=== PATIENT | male | born 1950 | race Caucasian/White ===

== ENCOUNTER 2016-09-16 07:33 | Inpatient (IN) ==
--- NOTE | 2016-09-16 07:44 | Emergency Department Note ---
Disposition Clinical Impression: Acute appendicitis, Perforated appendix Disposition: Admitted As Inpatient Condition: Good General Adult HPI - General Chief complaint: ED Abdominal Pain Stated complaint: Flank Pain / Swelling Time Seen by Provider: 09/16/16 07:41 Source: patient Limitations: no limitations - History of Present Illness Pain Scale: 6 - Related Data Home Medications Medication Instructions Recorded Confirmed Citalopram Hydrobromide [Celexa] 40 mg PO QAM 09/16/16 09/16/16 Lisinopril/Hydrochlorothiazide 1 tab PO QAM 09/16/16 09/16/16 [Zestoretic 10-12.5 mg Tablet] Meloxicam [Mobic] 15 mg PO QAM 09/16/16 09/16/16 Oxycodone HCl/Acetaminophen 1 tab PO Q6H PRN 09/16/16 09/16/16 [Percocet 5-325 mg Tablet] Tizanidine HCl [Zanaflex] 4 mg PO TID PRN 09/16/16 09/16/16 Allergies Allergy/AdvReac Type Severity Reaction Status Date / Time Amoxicillin Allergy Hives Verified 09/16/16 09:51 ampicillin Allergy Hives Verified 09/16/16 09:51 bupropion [From Wellbutrin] Allergy Hives Verified 09/16/16 09:51 Past Medical History - Past Medical History Medical history: Reports: hypertension Psychiatric history: Reports: anxiety, depression - Social History Smoking Status: Current every day smoker Smokeless Tobacco Status: No Alcohol use: Reports: none Drug use: Reports: none Physical Exam - General Limitations: no limitations General appearance: alert Course Vital Signs Temperature 98 F 09/16/16 07:35 Pulse Rate 88 09/16/16 07:35 Respiratory Rate 18 09/16/16 07:35 Blood Pressure 114/81 09/16/16 07:35 O2 Sat by Pulse Oximetry 98 09/16/16 07:35 Temperature 97.7 F 09/17/16 06:59 Pulse Rate 62 09/17/16 06:59 Respiratory Rate 17 09/17/16 06:59 Blood Pressure 132/79 09/17/16 06:59 O2 Sat by Pulse Oximetry 95 09/17/16 06:59 Oxygen Delivery Oxygen Delivery Room Air Medical Decision Making - Lab Data Result diagrams: 09/17/16 05:35 09/17/16 05:35 Lab Results 09/16/16 09/16/16 09/16/16 Range/Units 08:07 08:11 08:11 WBC 13.4 H (4.3-11.1) K/mcL RBC 5.20 (4.19-5.50) M/mcL Hgb 15.3 (12.9-16.9) g/dL Hct 45.3 (37.5-50.1) % MCV 87.1 (83.0-100.0) fL MCH 29.4 (28.0-33.3) pg MCHC 33.8 (31.6-35.5) g/dL RDW 14.0 (11.5-14.5) % Plt Count 252 (140-400) K/mcL MPV 10.0 (9.4-12.4) fL Immature Gran % 0.8 (0-4) % Seg Neutrophils % 87.1 % Lymphocytes % 3.5 % Monocytes % 7.1 % Eosinophils % 1.3 % Basophils % 0.2 % Neutrophils # 11.6 H (1.6-8.9) K/mcL Lymphocytes # 0.5 L (0.6-4.6) K/mcL Monocytes # 1.0 (0.0-1.3) K/mcL Eosinophils # 0.2 (0.0-0.6) K/mcL Basophils # 0.0 (0.0-0.2) K/mcL Sodium 135 L (136-145) mEq/L Potassium 3.5 (3.5-4.5) mEq/L Chloride 99 (98-109) mEq/L Carbon Dioxide 27 (19-29) mEq/L BUN 17 (8-26) mg/dL Creatinine 1.19 (0.72-1.25) mg/dL Est GFR ( Amer) > 60 (> 60) Est GFR (Non-Af Amer) > 60 (> 60) BUN/Creatinine Ratio 14 (6-26) Glucose 108 H (70-99) mg/dL Calculated Osmolality 282 (280-300) Calcium 9.4 (8.6-10.8) mg/dL Total Bilirubin 1.2 (0.2-1.2) mg/dL AST 27 (5-34) Units/L ALT 29 (0-55) Units/L Alkaline Phosphatase 114 (38-126) Units/L Serum Total Protein 8.0 (6.0-8.3) g/dL Albumin 3.3 L (3.5-5.0) g/dL Globulin 4.7 H (2.4-3.5) g/dL Albumin/Globulin Ratio 0.7 L (1.1-2.2) Urine Color Dark Yellow (Yellow) Urine Clarity Clear (Clear) Urine pH 6.0 (5.0-8.0) pH Units Ur Specific [place] 1.029 H (1.010-1.025) Urine Protein 100 H (Neg-Trace) mg/dL Urine Glucose (UA) Normal (Normal) mg/dL Urine Ketones Trace H (Negative) mg/dL Urine Blood Negative (Negative) Urine Nitrite Negative (Negative) Urine Bilirubin Small H (Negative) Urine Urobilinogen Normal (Normal) mg/dL Ur Leukocyte Esterase Negative (Negative) Urine Microscopic RBC 0-3 (0-3) per hpf Urine Microscopic WBC 0-3 (0-3) per hpf Ur Squamous Epith Cells Many H (None-Few) per lpf Urine Bacteria None Seen (None-Few) per hpf Hyaline Casts None Seen (None-Few) per lpf Ur Culture Indicated? NO (NO) Attestation Statement - Attestation Attestation: I examined this patient and my medical decision-making was reviewed with the Resident Physician. I agree with the documented findings, disposition and treatment plan as described except to the extent set forth below. [id number] time provided Patient complains of right flank pain. When asked to localize his pain he actually points to his right lateral abdomen. I cannot reproduce a Khoury sign. He appears uncomfortable on exam. He does have a small well- circumscribed erythematous rash to his anterior abdominal wall but states this has been present for 2 weeks and he was told by his primary care provider that this is a reaction to a prescribed medication. I evaluated this patient in conjunction with the resident physician Dr. Boston.
--- NOTE | 2016-09-16 07:50 | Emergency Department Note ---
Disposition Clinical Impression: Perforated appendix Acute appendicitis Qualifiers: Acute appendicitis type: with generalized peritonitis Qualified Code(s): K35.2 - Acute appendicitis with generalized peritonitis Disposition: Admitted As Inpatient Condition: Good Referrals: NONE,PCP [Non-Partnered Physician] - Forms: ED Satisfaction Letter, Work/School Release Time of Disposition: 09:00 General Adult HPI - General Chief complaint: ED Abdominal Pain Stated complaint: Flank Pain / Swelling Time Seen by Provider: 09/16/16 07:41 Source: patient Limitations: no limitations Nursing Notes Reviewed: Yes Vital Signs Reviewed: Yes - History of Present Illness HPI Narrative: 1 week history of mass on right abdominal wall. States that he was picking up heavy material and felt a pull in his side. Has been seen by his primary care physician diagnosed with the abdominal wall strain however the pain is not getting better. He reports subjective chills and a high temp of 99 at home. He states if he lays still it is not very ambulatory the pain eases. The quality as an ache. There is no radiation. Pain Scale: 6 - Related Data Allergies Allergy/AdvReac Type Severity Reaction Status Date / Time ampicillin AdvReac Hives Verified 09/16/16 07:40 clonazepam AdvReac Confusion Verified 09/16/16 07:40 All systems ED: reviewed and negative except as stated. Constitutional: Reports: chills. Denies: fever, weakness Cardiovascular: Reports: dyspnea on exertion (After walking long distances.). Denies: chest pain, syncope Respiratory: Denies: cough, dyspnea Gastrointestinal: Reports: abdominal pain (2 right upper quadrant). Denies: nausea, vomiting, diarrhea Genitourinary: Denies: urgency, dysuria, frequency, hematuria, testicular mass Musculoskeletal: Denies: back pain, neck pain Integumentary: Reports: rash (2 abdominal wall present for over 2 weeks. Healing appropriately). Denies: abrasion Neurological: Denies: headache, weakness Psychiatric: Reports: anxiety Past Medical History - Past Medical History Attestation: Yes The following information was validated with the patient. Source: patient Medical history: Reports: hypertension Psychiatric history: Reports: anxiety, depression - Social History Smoking Status: Current every day smoker Smokeless Tobacco Status: No Alcohol use: Reports: none Drug use: Reports: none Physical Exam - General Limitations: no limitations General appearance: alert, in no apparent distress - Head Head exam: atraumatic, normocephalic, normal inspection - Eye Eye exam: Present: normal appearance, PERRL, EOMI, scleral icterus - ENT ENT exam: normal exam, normal oropharynx, mucous membranes moist - Neck Neck exam: Present: normal inspection, full ROM - Chest Chest inspection: Present: normal inspection, symmetric chest wall rise. Absent : tenderness - Respiratory Respiratory exam: Present: normal lung sounds bilaterally. Absent: respiratory distress - Cardiovascular Cardiovascular exam: Present: regular rate, normal rhythm, normal heart sounds - Abdominal Exam Abdominal exam: Present: soft, tenderness (Mild tenderness over right lateral abdominal wall.), normal bowel sounds, organomegaly. Absent: distention, guarding, rebound, rigidity, diminished bowel sounds, Khoury's sign, Rovsing's sign, tenderness at McBurney's Point, ascites - Extremities Exam Extremities exam: Present: normal inspection, full ROM, normal capillary refill. Absent: tenderness, pedal edema - Back Exam Back exam: Present: normal inspection, full ROM. Absent: tenderness, CVA tenderness (R), CVA tenderness (L) - Neurological Exam Neurological exam: Present: alert, oriented X3 - Psychiatric Psychiatric exam: Present: normal affect, normal mood - Skin Skin exam: Present: warm, dry, intact, rash (Small to anterior abdominal wall healing appropriately.) Course Course Narrative: Well-appearing male patient presenting to the emergency department. He is complaining of a five-day history of pain to his right side. He states he was lifting some heavy metal and felt a pull in his side. He then noticed he has a mass that he can palpate in his abdomen. This is to the right upper quadrant. He states that he was seen by his primary care physician for this this week and diagnosed with a muscle strain. However the pain is not relieved. He does report subjective fevers at home however when he measured at the greatest he got was 99 degrees Fahrenheit. He denies any nausea vomiting or diarrhea. He denies any hematochezia or melena. He denies any trouble urinating. He denies any history of kidney stones or liver disease. He states he is not a drinker. Does report smoking a half a pack of cigarettes a day. He reports feeling a mass on the right side of his abdomen. He also reports having an allergic reaction to Klonopin approximately 3 weeks ago that resulted in a small rash to his abdominal wall. This appears to be healing appropriately. The rash is bilateral on his anterior abdomen. Patient is resting comfortably in bed at this time. On exam his lung sounds are clear heart tones are normal his abdomen is soft and nontender. The area that he points to and states there is a mass on palpation feels like a muscle. It is to his right upper and lateral quadrant. He has no tenderness in his right lower quadrant. There is no McBurney's point tenderness or Khoury sign. Patient is refusing pain medication at this time. He describes the pain as an ache but states that it is minimal to gone at this time. We will get a basic lab workup palpation and scan patient's abdomen. We will also get a UA. - Reevaluation(s) Reevaluation #1: Patient has a perforated appendix. We will contact Dr. combs who is on for surgery today. We will also begin patient on antibiotics. We will start patient on Zosyn. He states that he does have an ampicillin allergy however this is a rash after he has taken the medication for over 9 days. We will watch patient while he is here. We will admit to the hospital. Time: 08:59 - Consultations Consultation #1: I spoke with Dr. Combs. He is requesting we placed the patient on double antibiotic coverage. He is suggesting Zosyn and Flagyl. He is requesting we admit the patient to the hospitalist as the abdomen needs to call off after the perforation. We will contact the hospitalist. I have placed a consult for Dr. combs. Time: 09:16 Consultation #2: Dr Cohen accepted Pt in stable condition. Time: 09:26 Vital Signs Temperature 98 F 09/16/16 07:35 Pulse Rate 88 09/16/16 07:35 Respiratory Rate 18 09/16/16 07:35 Blood Pressure 114/81 09/16/16 07:35 O2 Sat by Pulse Oximetry 98 09/16/16 07:35 Temperature 98 F 09/16/16 07:35 Pulse Rate 86 09/16/16 09:02 Respiratory Rate 16 09/16/16 09:02 Blood Pressure 110/81 09/16/16 09:02 O2 Sat by Pulse Oximetry 96 09/16/16 09:02 Oxygen Delivery Oxygen Delivery Room Air Medical Decision Making - Medical Records Medical records reviewed: Yes I reviewed the patient's medical records. - Lab Data Lab results reviewed: Yes I reviewed the patient's lab results. Result diagrams: 09/16/16 08:11 09/16/16 08:11 Lab Results 09/16/16 09/16/16 09/16/16 Range/Units 08:07 08:11 08:11 WBC 13.4 H (4.3-11.1) K/mcL RBC 5.20 (4.19-5.50) M/mcL Hgb 15.3 (12.9-16.9) g/dL Hct 45.3 (37.5-50.1) % MCV 87.1 (83.0-100.0) fL MCH 29.4 (28.0-33.3) pg MCHC 33.8 (31.6-35.5) g/dL RDW 14.0 (11.5-14.5) % Plt Count 252 (140-400) K/mcL MPV 10.0 (9.4-12.4) fL Immature Gran % 0.8 (0-4) % Seg Neutrophils % 87.1 % Lymphocytes % 3.5 % Monocytes % 7.1 % Eosinophils % 1.3 % Basophils % 0.2 % Neutrophils # 11.6 H (1.6-8.9) K/mcL Lymphocytes # 0.5 L (0.6-4.6) K/mcL Monocytes # 1.0 (0.0-1.3) K/mcL Eosinophils # 0.2 (0.0-0.6) K/mcL Basophils # 0.0 (0.0-0.2) K/mcL Sodium 135 L (136-145) mEq/L Potassium 3.5 (3.5-4.5) mEq/L Chloride 99 (98-109) mEq/L Carbon Dioxide 27 (19-29) mEq/L BUN 17 (8-26) mg/dL Creatinine 1.19 (0.72-1.25) mg/dL Est GFR ( Amer) > 60 (> 60) Est GFR (Non-Af Amer) > 60 (> 60) BUN/Creatinine Ratio 14 (6-26) Glucose 108 H (70-99) mg/dL Calculated Osmolality 282 (280-300) Calcium 9.4 (8.6-10.8) mg/dL Total Bilirubin 1.2 (0.2-1.2) mg/dL AST 27 (5-34) Units/L ALT 29 (0-55) Units/L Alkaline Phosphatase 114 (38-126) Units/L Serum Total Protein 8.0 (6.0-8.3) g/dL Albumin 3.3 L (3.5-5.0) g/dL Globulin 4.7 H (2.4-3.5) g/dL Albumin/Globulin Ratio 0.7 L (1.1-2.2) Urine Color Dark Yellow (Yellow) Urine Clarity Clear (Clear) Urine pH 6.0 (5.0-8.0) pH Units Ur Specific [place] 1.029 H (1.010-1.025) Urine Protein 100 H (Neg-Trace) mg/dL Urine Glucose (UA) Normal (Normal) mg/dL Urine Ketones Trace H (Negative) mg/dL Urine Blood Negative (Negative) Urine Nitrite Negative (Negative) Urine Bilirubin Small H (Negative) Urine Urobilinogen Normal (Normal) mg/dL Ur Leukocyte Esterase Negative (Negative) Urine Microscopic RBC 0-3 (0-3) per hpf Urine Microscopic WBC 0-3 (0-3) per hpf Ur Squamous Epith Cells Many H (None-Few) per lpf Urine Bacteria None Seen (None-Few) per hpf Hyaline Casts None Seen (None-Few) per lpf Ur Culture Indicated? NO (NO) - Radiology Data Radiology results reviewed: Yes I reviewed the patient's radiology results. Abdomen/Pelvis CT 09/16/16 07:57 IMPRESSION: 1. Acute appendicitis with a contained perforation. An air in fluid collection is seen at the tip of the appendix measuring up to 3.8 cm. Moderate amount of stranding is seen along the right pericolic gutter. 2. Thickening of the urinary bladder wall, which may be related to underdistention versus cystitis. Suggest correlation with urinalysis. 3. Otherwise, no acute abnormality identified within the unenhanced abdomen or pelvis. 4. Diverticulosis of the colon without diverticulitis. 5. A punctate nonobstructing stone is seen at the inferior pole the left kidney. Findings were discussed with Dr. Boston on 09/16/2016 at 8:49 am. D/ / Buzz Sanabria MD / Buzz Sanabria MD Interpreting Provider: Buzz Sanabria MD
[2016-09-16 08:19] LABS: Basophils % 0.2 %; Eosinophils # 0.2 K/mcL (0.0-0.6); Eosinophils % 1.3 %; Hematocrit 45.3 % (37.5-50.1); Hemoglobin 15.3 g/dL (12.9-16.9); Immature Granulocytes % 0.8 % (0-4); Lymphocytes # 0.5 K/mcL (0.6-4.6); Lymphocytes % 3.5 %; Mean Corpuscular HGB Conc 33.8 g/dL (31.6-35.5); Mean Corpuscular Hemoglobin 29.4 pg (28.0-33.3); Mean Corpuscular Volume 87.1 fL (83.0-100.0); Monocytes % 7.1 %; Neutrophils # 11.6 K/mcL (1.6-8.9); Platelet Count 252 K/mcL (140-400); Segmented Neutrophils % 87.1 %
[2016-09-16 08:21] LABS: Bilirubin,Urine Small (Negative); Blood,Urine Negative (Negative); Clarity,Urine Clear (Clear); Color,Urine Dark Yellow (Yellow); Glucose,Urine (UA) Normal (Normal); Ketones,Urine Trace mg/dL (Negative); Leukocyte Esterase,Urine Negative (Negative); Nitrite,Urine Negative (Negative); Protein,Urine 100 mg/dL (Neg-Trace); Specific Gravity,Urine 1.029 (1.010-1.025); Urobilinogen,Urine Normal (Normal)
[2016-09-16 08:24] LABS: Bacteria,Urine None Seen per hpf (None-Few); Hyaline Casts,Urine None Seen per lpf (None-Few); RBC,Urine 0-3 per hpf (0-3); Squamous Epithelial Cell,Urine Many per lpf (None-Few); WBC,Urine 0-3 per hpf (0-3)
[2016-09-16 08:33] LABS: Alanine Aminotransferase 29 Units/L (0-55); Albumin 3.3 g/dL (3.5-5.0); Albumin/Globulin Ratio 0.7 (1.1-2.2); Alkaline Phosphatase 114 Units/L (38-126); Aspartate Amino Transferase 27 Units/L (5-34); BUN/Creatinine Ratio 14 (6-26); Bilirubin,Total 1.2 mg/dL (0.2-1.2); Blood Urea Nitrogen 17 mg/dL (8-26); Calcium 9.4 mg/dL (8.6-10.8); Carbon Dioxide 27 mEq/L (19-29); Chloride 99 mEq/L (98-109); Globulin 4.7 g/dL (2.4-3.5); Glucose 108 mg/dL (70-99); Osmolality,Calculated 282 (280-300); Potassium 3.5 mEq/L (3.5-4.5); Sodium 135 mEq/L (136-145); eGFR For African Americans > 60 (> 60); eGFR For Non-African Americans > 60 (> 60)
[2016-09-16] MEDS ORDERED: *HR* Morphine 2 MG/ML SYRINGE IVP ONE (08:46)
[2016-09-16] MEDS ORDERED: Piperacillin/Tazobactam 3.375 GM in D5% in Water (Mini-Bag+) 100 ML IVPB ONE (08:52)
[2016-09-16] MEDS ORDERED: MetroNIDAZOLE 500 MG/100 ML 500 MG/100 ML BAG IVPB ONE (09:15)
[2016-09-16] MEDS ORDERED: *HR* Morphine 2 MG/ML SYRINGE IVP PRN (09:46)
[2016-09-16] MEDS ORDERED: Naloxone 0.4 MG/ML INJ IVP PRN (09:46)
[2016-09-16] MEDS ORDERED: Ondansetron 4 MG/2 ML VIAL IVP PRN (09:46)
[2016-09-16] MEDS ORDERED: Ipratropium/Albuterol Neb 3 ML IH PRN (09:49)
--- NOTE | 2016-09-16 09:52 | Internal Med History&Physical ---
Date of Encounter: 09/16/16 Time of Encounter: 09:50 Assessment and Plan (1) Intra-abdominal abscess Current visit: Yes Status: Acute secondary to perforated appendicitis NPO, IV fluids, morphine as needed, Zofran continue Zosyn and Flagyl IV as requested by Dr Combs Protonix IV for GI prophylaxis and subcutaneous heparin for DVT prophylaxis. The patient will be admitted as inpatient, expected stable intermittent. Full code. Time spent on this admission 40 minutes. High risk due to perforated appendicitis (2) Hypertension Current visit: Yes Status: Acute Can use hydralazine IV as needed Qualifiers: Hypertension type: essential hypertension Qualified Code(s): I10 - Essential (primary) hypertension (3) Tobacco abuse Current visit: Yes Status: Acute Smoking cessation counseling, nicotine patch (4) Perforated appendix Current visit: Yes Status: Acute Internal Medicine - H&P: HPI Chief complaint: Abdominal pain Admitted From: Emergency Dept History of present illness: Mr. Carlos is a 66 year old male with a past medical history of tobacco use, hypertension, anxiety, came to the emergency room complaining of abdominal pain that started a week ago worse on Monday, he went to see his primary care physician when stay in he was diagnosed with a pulled muscle. The pain got worse and is located in the right hemiabdomen. The CT scan of the abdomen and pelvis showed a perforated appendicitis and there is a 3.8 cm fluid collection with air/abscess at the tip of the appendix, also a thickened bladder. Dr. Combs was called by the ER physician and requested the patient to be admitted to the hospitalist service and to continue Zosyn and Flagyl. Patient's white blood cell count is 13.4, his been running fevers of 99 at home. Has been complaining of chills and mild nausea and his pain was rated as 4 out of 10 after receiving morphine. 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 Review of systems: Abdominal pain, no chest pain or short of breath. Other systems out of the 10 reviewed were negative - Constitutional Vitals: Temp Pulse Resp BP Pulse Ox 98 F 78 15 111/77 96 09/16/16 07:35 09/16/16 09:37 09/16/16 09:37 09/16/16 09:37 09/16/16 09:37 General appearance: Present: A&O X 3 - Head Head exam: Present: atraumatic, normocephalic - Eye Eye exam: Present: PERRL, conjuntiva pink, sclera anicteric Pupils: Present: PERRL - Neck Neck exam general surgery: Present: supple, trachea midline. Absent: lymphadenopathy - Respiratory Respiratory exam: Present: CTAB. Absent: accessory muscle use, rales, rhonchi, wheezes - Cardiovascular Cardiovascular exam: Present: RRR, +S1, +S2. Absent: diastolic murmur, gallop, rubs, systolic murmur - GI/Abdominal GI/Abdominal exam: Present: distended, normal bowel sounds, soft, tenderness ( Tenderness in the right lower quadrant, no rebound. Khoury sign is negative), no peritoneal signs - Extremities Exam Extremities exam: Present: warm, radial pulses palpable and symetrical. Absent : calf tenderness, cyanotic, pedal edema - Neurological Exam Neurological exam: Present: CN II-XII intact, oriented X3, no focal deficits. Absent: pronater drift, facial droop, speech deficit - Skin Skin exam: Present: dry, intact Internal Med - H&P Results - Labs CBC & Chem 7: 09/16/16 08:11 09/16/16 08:11
[2016-09-16] MEDS: 0.9 % Sodium Chloride 1,000 ML IVC SCH ×2 (11:28→19:19)
[2016-09-16] MEDS: Pantoprazole 40 MG VIAL IVP SCH (11:28)
[2016-09-16] MEDS: Nicotine 21 MG PATCH.TD24 TD SCH (11:28)
--- NOTE | 2016-09-16 11:55 | General Surgery Consult Note ---
Date of Encounter: 09/16/16 Time of Encounter: 11:15 History of Present Illness Reason for consult: abdominal pain (acute perforated appendicitis) Requesting physician: Doretha Boston History of present illness: 66-year-old male referred to surgical services after presenting to the emergency department with approximately a 4 day history of right lower quadrant/ right flank pain. Patient indicates being seen by his primary provider about 3 days ago, with a diagnosis of a "pulled muscle"related to lifting a heavy object and feeling "something pull". Since that time the patient's symptoms have progressed, there is subjective reporting of chills and a fever of approximately 99 degrees. No rigors, N/V, inconsistent diarrhea with interspersed normal bowel movements. On presentation to the emergency department patient has a white count of 13.[address] abdomen and pelvis (which was personally reviewed with [facility]) showing moderate stranding seen along the right pericolic gutter with thickening of the appendix along with an air-fluid level measuring 3.5 x 3.7 x 3.8 cm. Diverticulosis left side of the abdomen is detected without obvious inflammation. The findings are consistent with an acute perforated appendicitis and sarahy appendiceal abscess formation. 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 Clonazepam and Toradol recently stopped as the patient was complaining of some weakness, dizziness/ vertigo and visual changes. Ampicillin as described to cause a rash, possibly hives Social history: Patient is , was with spell; quit all alcohol approximately 5 years ago (history of alcohol abuse); he continues to smoke, admitting to half a pack a day for approximately 40 years. The patient does not consume any illicit drugs. Family history: Both parents with history of lung cancer On physical examination: Age-appropriate male resting comfortably in his hospital bed. It should be noted that he has recently been medicated with morphine The patient is afebrile, 98.0; heart rate 78, respirations 18, blood pressure 111/77; SPO2 on room air 96-99% The patient is 1.7 cm tall, 86.18 kg; BMI 29.8 Skin is warm, no obvious jaundice Lungs: Clear, no pain on inspiration during my exam however the patient indicates he did have pain on inspiration in the emergency department Cardiac: Regular rate, no appreciable murmurs Abdomen: Soft, nontender, no detected intra abdominal masses, however, there is an approximately 4 cm ovoid area of discoloration which is tender in the right flank area anterior axillary line. This corresponds and is consistent with the CT findings. Bowel sounds hypoactive. Extremities: no obvious clubbing, cyanosis, or edema. Laboratories: White count 13.4, hemoglobin 15.3, hematocrit 45.3. Neutrophils 11.6%; platelet count 252,000 Sodium 135, potassium 3.5, chloride 99, bicarbonate 27, BUN 17, creatinine 1.19. Urinalysis notable for pH 6.0, specific gravity 1.029; protein 100, trace bili; many squamous epith cells CT: As described above Impression: 66-year-old male with acute, perforated, retrocecal appendicitis Recommendations: IV ATB - it is my understanding patient received Zosyn in the ED (with no apparent adverse reaction); I have also requested metronidazole to aggressively treat the perforation and sarahy appendiceal abscess patient may have clear liquids including coffee as well as oral medications that are not available in IV form Interval Appendectomy will be planned if the acute inflammation responds to the IV ATB This was extensively discussed with the patient and his . I will follow along with you. Past Med Surg Social Fam HX - Past Medical History Medical history: hypertension, other Psychiatric history: anxiety, depression - Past Surgical History Surgical History: other - Social History Smoking Status: Current every day smoker Packs per day: Half pack per day Smokeless Tobacco Status: No Alcohol use: none Drug use: none - Family History Mother Living Status: Hx Family Cardiac Disorders: Yes Hx Family Cancer: Yes (lung cancer) Medications and Allergies Citalopram Hydrobromide [Celexa] 40 mg PO QAM 09/16/16 [History] Lisinopril/Hydrochlorothiazide [Zestoretic 10-12.5 mg Tablet] 1 tab PO QAM 09/16 [History] Meloxicam [Mobic] 15 mg PO QAM 09/16/16 [History] Oxycodone HCl/Acetaminophen [Percocet 5-325 mg Tablet] 1 tab PO Q6H PRN [History] Tizanidine HCl [Zanaflex] 4 mg PO TID PRN 09/16/16 [History] Allergies Amoxicillin Allergy (Verified 09/16/16 09:51) Hives ampicillin Allergy (Verified 09/16/16 09:51) Hives bupropion [From Wellbutrin] Allergy (Verified 09/16/16 09:51) Hives Review of Systems All systems PM: A 10-system review of systems was performed and is negative for pertinent findings except as documented above in the HPI. General Surgery Exam Initial Vital Signs Temp Pulse Resp BP Pulse Ox 98 F 88 18 114/81 98 09/16/16 07:35 09/16/16 07:35 09/16/16 07:35 09/16/16 07:35 09/16/16 07:35 Exam Initial Vital Signs Temp Pulse Resp BP Pulse Ox 98 F 88 18 114/81 98 09/16/16 07:35 09/16/16 07:35 09/16/16 07:35 09/16/16 07:35 09/16/16 07:35 Results - Labs 09/16/16 08:11 09/16/16 08:11 Abnormal lab results WBC 13.4 K/mcL (4.3-11.1) H 09/16/16 08:11 Neutrophils # 11.6 K/mcL (1.6-8.9) H 09/16/16 08:11 Lymphocytes # 0.5 K/mcL (0.6-4.6) L 09/16/16 08:11 Sodium 135 mEq/L (136-145) L 09/16/16 08:11 Glucose 108 mg/dL (70-99) H 09/16/16 08:11 Albumin 3.3 g/dL (3.5-5.0) L 09/16/16 08:11 Globulin 4.7 g/dL (2.4-3.5) H 09/16/16 08:11 Albumin/Globulin Ratio 0.7 (1.1-2.2) L 09/16/16 08:11 Ur Specific [place] 1.029 (1.010-1.025) H 09/16/16 08:07 Urine Protein 100 mg/dL (Neg-Trace) H 09/16/16 08:07 Urine Ketones Trace mg/dL (Negative) H 09/16/16 08:07 Urine Bilirubin Small (Negative) H 09/16/16 08:07 Ur Squamous Epith Cells Many per lpf (None-Few) H 09/16/16 08:07 All other labs normal. Consult Discharge Plan - Plan Referrals: Winifred Tuttle MD [Primary Care Provider] -
[2016-09-16] MEDS: Piperacillin/Tazobactam 3.375 GM in D5% in Water (Mini-Bag+) 100 ML IVPB SCH ×2 (17:06→23:27)
[2016-09-16] MEDS: MetroNIDAZOLE 500 MG/100 ML 500 MG/100 ML BAG IVPB SCH ×2 (17:07→23:27)
[2016-09-16] MEDS: *HR* Heparin 5,000 UNIT/ML VIAL SQ SCH (17:07)
[2016-09-16] MEDS: Acetaminophen 325 MG TABLET PO PRN (21:57)
[2016-09-17] MEDS: 0.9 % Sodium Chloride 1,000 ML IVC SCH ×3 (02:42→17:58)
[2016-09-17] MEDS: *HR* Heparin 5,000 UNIT/ML VIAL SQ SCH ×2 (05:37→17:59)
[2016-09-17 06:22] LABS: Hematocrit 38.6 % (37.5-50.1); Mean Corpuscular HGB Conc 32.9 g/dL (31.6-35.5); Mean Corpuscular Hemoglobin 29.3 pg (28.0-33.3); Mean Corpuscular Volume 88.9 fL (83.0-100.0); Mean Platelet Volume 10.4 fL (9.4-12.4); Platelet Count 229 K/mcL (140-400); Red Blood Count 4.34 M/mcL (4.19-5.50); Red Cell Distribution Width 14.2 % (11.5-14.5)
[2016-09-17 06:33] LABS: BUN/Creatinine Ratio 13 (6-26); Blood Urea Nitrogen 14 mg/dL (8-26); Calcium 8.2 mg/dL (8.6-10.8); Carbon Dioxide 26 mEq/L (19-29); Chloride 104 mEq/L (98-109); Glucose 94 mg/dL (70-99); Osmolality,Calculated 284 (280-300); Potassium 3.5 mEq/L (3.5-4.5); Sodium 137 mEq/L (136-145); eGFR For African Americans > 60 (> 60); eGFR For Non-African Americans > 60 (> 60)
[2016-09-17 06:34] LABS: Hemoglobin 12.7 g/dL (12.9-16.9)
[2016-09-17] MEDS: Pantoprazole 40 MG VIAL IVP SCH (07:46)
[2016-09-17] MEDS: Nicotine 21 MG PATCH.TD24 TD SCH (07:47)
[2016-09-17] MEDS: Piperacillin/Tazobactam 3.375 GM in D5% in Water (Mini-Bag+) 100 ML IVPB SCH ×2 (07:47→15:29)
[2016-09-17] MEDS: MetroNIDAZOLE 500 MG/100 ML 500 MG/100 ML BAG IVPB SCH ×2 (07:48→15:29)
[2016-09-17] MEDS: Acetaminophen 325 MG TABLET PO PRN ×2 (10:31→22:24)
--- NOTE | 2016-09-17 12:07 | General Surgery Progress Note ---
Date of Encounter: 09/17/16 Time of Encounter: 12:02 Subjective Patient reports: feels better, pain is less, tolerating liquids well Narrative: General Surgery Patient is feeling better, no fever, chills, N/V. Pain persists but has diminished The patient is afebrile, hemodynamically stable with pulse 62, respirations 17, blood pressure 132/79. Lungs: Clear, no obvious pain on deep inspiration Abdomen: Soft, nondistended, nontender. The oval area of discolored skin right lower abdomen, anterior axillary line is still present but the tenderness is notably diminished. Bowel sounds are active. Laboratories: Leukocytosis has resolved, 10.3, hemoglobin 12.7, hematocrit 38.6 ; platelet count 229,000. Electrolytes, BUN, creatinine within normal limits, potassium stable 3.5 Impression: Acute perforated retrocecal appendicitis with periappendiceal abscess Significant improvement since admission Recommendations: allow regular diet continue IV ATB recheck in AM including CBC may p-tessa maintenance IV Objective Vital Signs - Last 8 Hours Temp Pulse Resp BP Pulse Ox 09/17/16 10:47 98.1 F 58 16 144/75 98 09/17/16 06:59 97.7 F 62 17 132/79 95 09/17/16 04:32 97.8 F 57 15 143/78 95 Intake and Output 09/16/16 09/17/16 09/17/16 23:59 07:59 15:59 Intake Total 1560 / 1560 1200 / 1200 1700 / 1700 Output Total 575 / 575 400 / 400 350 / 350 Balance 985 / 985 800 / 800 1350 / 1350 Intake: IV Fluids 1200 / 1200 1200 / 1200 1100 / 1100 0.9 % Sodium Chloride 1, 1000 / 1000 1000 / 1000 1000 / 1000 000 ML @ 150 mls/hr IVC . Q6H40M [facility] Rx#:[id number] Flagyl Premix 500 MG/100 100 / 100 100 / 100 100 / 100 ML 500 mg In 100 ml @ 100 mls/hr IVPB Q8HR [facility] Rx# :[id number] Zosyn 3.375 GM In 100 / 100 100 / 100 Dextrose 5% (Minibag+) 100 ML 100 ML @ 25 mls/hr IVPB Q8HR [facility] Rx#: [id number] Oral 360 / 360 600 / 600 Output: Urine 575 / 575 400 / 400 350 / 350 Other: Meal Dinner Breakfast # Bowel Movements 0 0 Weight 86.2 kg Patient Weight 09/17/16 23:59 Weight 86.2 kg - Labs 09/17/16 05:35 09/17/16 05:35 Diabetes panel 09/17/16 Range/Units 05:35 Sodium 137 (136-145) mEq/L Potassium 3.5 (3.5-4.5) mEq/L Chloride 104 (98-109) mEq/L Carbon Dioxide 26 (19-29) mEq/L BUN 14 (8-26) mg/dL Creatinine 1.11 (0.72-1.25) mg/dL Glucose 94 (70-99) mg/dL Calcium 8.2 L (8.6-10.8) mg/dL Calcium panel 09/17/16 Range/Units 05:35 Calcium 8.2 L (8.6-10.8) mg/dL Pituitary panel 09/17/16 Range/Units 05:35 Sodium 137 (136-145) mEq/L Potassium 3.5 (3.5-4.5) mEq/L Chloride 104 (98-109) mEq/L Carbon Dioxide 26 (19-29) mEq/L BUN 14 (8-26) mg/dL Creatinine 1.11 (0.72-1.25) mg/dL Glucose 94 (70-99) mg/dL Calcium 8.2 L (8.6-10.8) mg/dL Adrenal panel 09/17/16 Range/Units 05:35 Sodium 137 (136-145) mEq/L Potassium 3.5 (3.5-4.5) mEq/L Chloride 104 (98-109) mEq/L Carbon Dioxide 26 (19-29) mEq/L BUN 14 (8-26) mg/dL Creatinine 1.11 (0.72-1.25) mg/dL Glucose 94 (70-99) mg/dL Calcium 8.2 L (8.6-10.8) mg/dL Consult Discharge Plan - Plan Referrals: Winifred Tuttle MD [Primary Care Provider] -
[2016-09-17] MEDS ORDERED: *HR* Morphine 2 MG/ML SYRINGE IVP PRN (12:08)
--- NOTE | 2016-09-17 15:53 | Internal Med Progress Note ---
Date of Encounter: 09/17/16 Time of Encounter: 10:10 - Assessment and plan (1) Acute appendicitis Current Visit: Yes Status: Acute Assessment and plan: Acute perforated retrocecal appendicitis with periappendiceal abscess - symptoms now improving Continue IV Zosyn, IV Flagyl, IV morphine as needed for pain, IV Protonix, IV Zofran as needed for nausea CT abdomen and pelvis - acute appendicitis with a contained perforation with moderate amount of stranding along the right pericolic gutter WBC - 10.3 H&H - 12.7 and 38.6 UA - negative nitrites and negative for leukocyte esterase following patient - appreciate input, recommendations reviewed Labs in a.m. Qualifiers: Acute appendicitis type: unspecified acute appendicitis type Qualified Code (s): K35.80 - Unspecified acute appendicitis (2) Hypertension Current Visit: Yes Status: Chronic Assessment and plan: Essential hypertension, controlled, monitor Qualifiers: Hypertension type: essential hypertension Qualified Code(s): I10 - Essential (primary) hypertension (3) Tobacco abuse Current Visit: Yes Status: Chronic Assessment and plan: Counseled about cessation, nicotine patch (4) DVT prophylaxis Current Visit: Yes Status: Acute Assessment and plan: Continue heparin subcutaneous - Time Spent With Patient 25 - 35 minutes - Subjective Interval history: Exam of this morning. Patient is awake and alert. Not in any distress. Denies chest pain or shortness of breath. States his abdominal pain is now improved. States there is mild cramping in the right lower quadrant. Rates it 4 out of 10. Patient admitted for acute perforated retrocecal appendicitis with periappendiceal abscess. No vomiting. No fever. Dr Combs following patient. No other acute events or complaints. - Constitutional Vitals: Temp Pulse Resp BP Pulse Ox 98.0 F 76 16 129/73 96 09/17/16 14:43 09/17/16 14:43 09/17/16 14:43 09/17/16 14:43 09/17/16 14:43 General appearance: Present: A&O X 3, pleasant, no acute distress, answers questions appropriately - Head Head exam: Present: atraumatic - Eye Eye exam: Present: EOMI - Neck Neck exam general surgery: Present: supple - Respiratory Respiratory exam: Present: CTAB. Absent: rales, rhonchi, stridor, wheezes, tachypnea - Cardiovascular Cardiovascular exam: Present: RRR, +S1, +S2 - GI/Abdominal GI/Abdominal exam: Present: soft, tenderness (Mild right lower quadrant tenderness). Absent: distended, firm, guarding, rigid - Extremities Exam Extremities exam: Present: radial pulses palpable and symetrical. Absent: cyanotic, pedal edema, tenderness - Neurological Exam Neurological exam: Present: alert, oriented X3, no focal deficits Internal Medicine: Result - Labs CBC & Chem 7: 09/17/16 05:35 09/17/16 05:35 Labs: Short CBC 09/17/16 Range/Units 05:35 WBC 10.3 (4.3-11.1) K/mcL Hgb 12.7 L D (12.9-16.9) g/dL Hct 38.6 (37.5-50.1) % Plt Count 229 (140-400) K/mcL BMP 09/17/16 05:35 Sodium 137 Potassium 3.5 Chloride 104 Carbon Dioxide 26 BUN 14 Creatinine 1.11 Glucose 94 Calcium 8.2 L Consult Discharge Plan - Plan Referrals: Winifred Tuttle MD [Primary Care Provider] -
[2016-09-18] MEDS: MetroNIDAZOLE 500 MG/100 ML 500 MG/100 ML BAG IVPB SCH ×3 (00:39→15:58)
[2016-09-18] MEDS: Piperacillin/Tazobactam 3.375 GM in D5% in Water (Mini-Bag+) 100 ML IVPB SCH ×3 (00:40→15:59)
[2016-09-18] MEDS: 0.9 % Sodium Chloride 1,000 ML IVC SCH ×5 (03:05→22:33)
[2016-09-18 03:29] LABS: Basophils % 0.3 %; Eosinophils # 0.4 K/mcL (0.0-0.6); Eosinophils % 4.2 %; Hematocrit 34.9 % (37.5-50.1); Hemoglobin 11.4 g/dL (12.9-16.9); Immature Granulocytes % 0.3 % (0-4); Lymphocytes % 11.3 %; Mean Corpuscular HGB Conc 32.7 g/dL (31.6-35.5); Mean Corpuscular Hemoglobin 28.9 pg (28.0-33.3); Mean Corpuscular Volume 88.6 fL (83.0-100.0); Mean Platelet Volume 10.6 fL (9.4-12.4); Monocytes # 0.8 K/mcL (0.0-1.3); Monocytes % 8.7 %; Neutrophils # 6.5 K/mcL (1.6-8.9); Platelet Count 235 K/mcL (140-400); Red Blood Count 3.94 M/mcL (4.19-5.50); Segmented Neutrophils % 75.2 %
[2016-09-18] MEDS: *HR* Heparin 5,000 UNIT/ML VIAL SQ SCH ×2 (04:57→18:39)
[2016-09-18] MEDS: Nicotine 21 MG PATCH.TD24 TD SCH (09:05)
[2016-09-18] MEDS: Pantoprazole 40 MG VIAL IVP SCH (09:06)
[2016-09-18] MEDS: Simethicone 80 MG TAB.CHEW PO PRN ×3 (09:25→20:55)
[2016-09-18] MEDS: Acetaminophen 325 MG TABLET PO PRN ×2 (13:46→18:43)
--- NOTE | 2016-09-18 15:25 | Internal Med Progress Note ---
Date of Encounter: 09/18/16 Time of Encounter: 09:35 - Assessment and plan (1) Acute appendicitis Current Visit: Yes Status: Acute Assessment and plan: Acute perforated retrocecal appendicitis with periappendiceal abscess - symptoms now improving Continue IV Zosyn, IV Flagyl, IV Morphine as needed for pain, IV Protonix, IV Zofran as needed for nausea CT abdomen and pelvis - acute appendicitis with a contained perforation with moderate amount of stranding along the right pericolic gutter WBC - 8.1 H&H - 11.4 and 34.9 UA - negative nitrites and negative for leukocyte esterase following patient - appreciate input, recommendations reviewed Labs in a.m. Qualifiers: Acute appendicitis type: unspecified acute appendicitis type Qualified Code (s): K35.80 - Unspecified acute appendicitis (2) Hypertension Current Visit: Yes Status: Chronic Assessment and plan: Essential hypertension, controlled, monitor Qualifiers: Hypertension type: essential hypertension Qualified Code(s): I10 - Essential (primary) hypertension (3) Tobacco abuse Current Visit: Yes Status: Chronic Assessment and plan: Counseled about cessation, nicotine patch (4) DVT prophylaxis Current Visit: Yes Status: Acute Assessment and plan: Continue heparin subcutaneous - Time Spent With Patient 25 - 35 minutes - Subjective Interval history: Examined this morning. Patient is awake and alert. Not in any distress. Denies chest pain or shortness of breath. States his abdominal pain has now almost resolved. Denies diarrhea or vomiting. Tolerating oral diet well. He complains of abdominal bloating. No fever. No other acute events or complaints. Patient admitted for acute perforated retrocecal appendicitis with periappendiceal abscess. Dr Combs following patient. - Constitutional Vitals: Temp Pulse Resp BP Pulse Ox 98.9 F 79 16 143/81 98 09/18/16 10:29 09/18/16 10:29 09/18/16 10:29 09/18/16 10:29 09/18/16 10:29 General appearance: Present: A&O X 3, pleasant, no acute distress, answers questions appropriately - Head Head exam: Present: atraumatic - Eye Eye exam: Present: EOMI - ENT ENT exam: Present: mucous membranes moist - Neck Neck exam general surgery: Present: supple - Respiratory Respiratory exam: Present: CTAB. Absent: rales, rhonchi, stridor, wheezes, tachypnea - Cardiovascular Cardiovascular exam: Present: RRR, +S1, +S2 - GI/Abdominal GI/Abdominal exam: Present: soft. Absent: distended, firm, guarding, rigid, tenderness Additional comments: Right lower quadrant tenderness has improved, firm abscess/mass felt in the right lower quadrant nontender - Extremities Exam Extremities exam: Present: radial pulses palpable and symetrical. Absent: cyanotic, pedal edema - Neurological Exam Neurological exam: Present: alert, oriented X3, no focal deficits Internal Medicine: Result - Labs CBC & Chem 7: 09/18/16 02:35 09/17/16 05:35 Labs: Short CBC 09/18/16 Range/Units 02:35 WBC 8.7 (4.3-11.1) K/mcL Hgb 11.4 L (12.9-16.9) g/dL Hct 34.9 L (37.5-50.1) % Plt Count 235 (140-400) K/mcL Neutrophils # 6.5 (1.6-8.9) K/mcL Consult Discharge Plan - Plan Referrals: Winifred Tuttle MD [Primary Care Provider] -
--- NOTE | 2016-09-18 17:35 | General Surgery Progress Note ---
Date of Encounter: 09/18/16 Time of Encounter: 17:30 Subjective Narrative: General Surgery -Hospital Day #2 Feeling better, pain persists but diminished. Pain localized to a small oval area of skin discoloration right flank. Afebrile, currently 98.8, pulse 77, respirations 16, blood pressure 146/82. SPO2 on room air 97%. Lungs: Clear Abdomen: Other than the pain localized to the small oval area right flank, nontender. Active bowel sounds Patient complained of significant gas pains last evening - relieved with simethicone (Gas-X) Laboratories: White count 8.7, hemoglobin 11.4, hematocrit 34.9. Differential within normal limits. Previous neutrophilia resolved. Impression: Acute perforated appendicitis, the patient appears to be improving in response to IV antibiotics Bowel function returning - evident by the Abdominal pain and gas pains that the patient experienced last evening. Leukocytosis resolved Discussed at length with the patient; CT abdomen and pelvis dated 09/16/16 on presentation. Anticipate repeating the CT but the longer the interval possible between the first and subsequent CT to better. Recommendations: Continue IV antibiotics; monitor for any deterioration in status Objective Vital Signs - Last 8 Hours Temp Pulse Resp BP Pulse Ox 09/18/16 15:22 98.8 F 77 16 146/82 97 09/18/16 10:29 98.9 F 79 16 143/81 98 Intake and Output 09/18/16 09/18/16 09/18/16 07:59 15:59 23:59 Intake Total 1440 / 1440 2590 / 2590 Output Total 600 / 600 1075 / 1075 Balance 840 / 840 1515 / 1515 Intake: IV Fluids 1200 / 1200 2200 / 2200 0.9 % Sodium Chloride 1, 1000 / 1000 2000 / 2000 000 ML @ 150 mls/hr IVC . Q6H40M [facility] Rx#:[id number] Flagyl Premix 500 MG/100 100 / 100 100 / 100 ML 500 mg In 100 ml @ 100 mls/hr IVPB Q8HR [facility] Rx# :[id number] Zosyn 3.375 GM In 100 / 100 100 / 100 Dextrose 5% (Minibag+) 100 ML 100 ML @ 25 mls/hr IVPB Q8HR [facility] Rx#: [id number] Oral 240 / 240 390 / 390 Output: Urine 600 / 600 1075 / 1075 Other: Meal Lunch Percent of Meal Consumed 5% Stool Size Moderate Stool Consistency loose formed Stool Color Brown # Voids 1 # Bowel Movements 0 0 Weight 82.1 kg Patient Weight 09/18/16 23:59 Weight 82.1 kg - Labs 09/18/16 02:35 09/17/16 05:35 Consult Discharge Plan - Plan Referrals: Winifred Tuttle MD [Primary Care Provider] -
[2016-09-18] MEDS ORDERED: ALPRAZolam 0.5 MG TABLET PO ONE ×2 (20:38)
[2016-09-19] MEDS: Piperacillin/Tazobactam 3.375 GM in D5% in Water (Mini-Bag+) 100 ML IVPB SCH ×3 (00:35→17:09)
[2016-09-19] MEDS: MetroNIDAZOLE 500 MG/100 ML 500 MG/100 ML BAG IVPB SCH ×3 (00:35→17:08)
[2016-09-19] MEDS: *HR* Heparin 5,000 UNIT/ML VIAL SQ SCH ×2 (05:35→17:06)
[2016-09-19] MEDS: Pantoprazole 40 MG VIAL IVP SCH (08:47)
[2016-09-19] MEDS: Nicotine 21 MG PATCH.TD24 TD SCH (08:47)
[2016-09-19] MEDS: 0.9 % Sodium Chloride 1,000 ML IVC SCH (13:17)
[2016-09-19] MEDS: Simethicone 80 MG TAB.CHEW PO PRN (17:13)
--- NOTE | 2016-09-19 17:38 | General Surgery Progress Note ---
Date of Encounter: 09/19/16 Time of Encounter: 12:30 Subjective Patient reports: feels better Narrative: General Surgery - hospital day #3 - this is a delayed dictation The patient is feeling better. Cramping abd pain resolved - patient passing flatus and moving bowels. Afebrile, maximum temperature 99.2, hemodynamically stable with pulse 84, respirations 14, blood pressure 112/71. SPO2 on room air 97% Lungs: Clear, no obvious pain on deep inspiration Abdomen: Soft, nontender with active bowel sounds. Previously noted tenderness in the right flank area continues to diminish Impression: Patient continues to improve; prior complaints of cramping abdominal pain resolved. Bowel activity has returned. Discussed with Dr. Andrews. Continue IV antibiotics Interval CT abdomen and pelvis in a.m. - patient is aware. Objective Vital Signs - Last 8 Hours Temp Pulse Resp BP Pulse Ox 09/19/16 15:04 99.1 F 84 14 112/71 97 09/19/16 10:52 99.2 F 82 16 144/81 97 Intake and Output 09/19/16 09/19/16 09/19/16 07:59 15:59 23:59 Intake Total 320 / 320 1580 / 1580 100 / 100 Output Total 850 / 850 1250 / 1250 Balance -530 / -530 330 / 330 100 / 100 Intake: IV Fluids 200 / 200 1100 / 1100 100 / 100 0.9 % Sodium Chloride 1, 1000 / 1000 000 ML @ 100 mls/hr IVC . Q10H [facility] Rx#:[id number] Flagyl Premix 500 MG/100 100 / 100 100 / 100 ML 500 mg In 100 ml @ 100 mls/hr IVPB Q8HR [facility] Rx# :[id number] Zosyn 3.375 GM In 100 / 100 100 / 100 Dextrose 5% (Minibag+) 100 ML 100 ML @ 25 mls/hr IVPB Q8HR [facility] Rx#: [id number] Oral 120 / 120 480 / 480 Output: Urine 850 / 850 1250 / 1250 Other: Meal Lunch Percent of Meal Consumed 75% # Bowel Movements 0 0 Weight 82.1 kg Patient Weight 09/19/16 23:59 Weight 82.1 kg - Labs 09/18/16 02:35 09/17/16 05:35 Consult Discharge Plan - Plan Referrals: Winifred Tuttle MD [Primary Care Provider] -
--- NOTE | 2016-09-19 18:12 | Internal Med Progress Note ---
Date of Encounter: 09/19/16 Time of Encounter: 10:15 - Assessment and plan (1) Acute appendicitis Current Visit: Yes Status: Acute Assessment and plan: Acute perforated retrocecal appendicitis with periappendiceal abscess - symptoms now improved Continue IV Zosyn, IV Flagyl, IV Morphine as needed for pain, IV Protonix, IV Zofran as needed for nausea CT abdomen and pelvis - acute appendicitis with a contained perforation with moderate amount of stranding along the right pericolic gutter WBC - 8.7 H&H - 11.4 and 34.9 UA - negative nitrites and negative for leukocyte esterase following patient - appreciate input, recommendations reviewed Repeat CT scan in a.m., Labs in a.m. Qualifiers: Acute appendicitis type: unspecified acute appendicitis type Qualified Code (s): K35.80 - Unspecified acute appendicitis (2) Hypertension Current Visit: Yes Status: Chronic Assessment and plan: Essential hypertension, controlled, monitor Qualifiers: Hypertension type: essential hypertension Qualified Code(s): I10 - Essential (primary) hypertension (3) Tobacco abuse Current Visit: Yes Status: Chronic Assessment and plan: Counseled about cessation, nicotine patch (4) DVT prophylaxis Current Visit: Yes Status: Acute Assessment and plan: Continue heparin subcutaneous - Time Spent With Patient 25 - 35 minutes - Subjective Interval history: Examined this morning. Patient is awake and alert. Not in any distress. Denies chest pain or shortness of breath. Denies abdominal pain at present. Denies diarrhea or vomiting. Tolerating oral diet well. No fever. No other acute events or complaints. Patient admitted for acute perforated retrocecal appendicitis with periappendiceal abscess. Dr Cobms following patient. Interval CT scan to be done in the morning. - Constitutional Vitals: Temp Pulse Resp BP Pulse Ox 99.1 F 84 14 112/71 97 09/19/16 15:04 09/19/16 15:04 09/19/16 15:04 09/19/16 15:04 09/19/16 15:04 General appearance: Present: A&O X 3, pleasant, no acute distress, answers questions appropriately - Head Head exam: Present: atraumatic - Eye Eye exam: Present: EOMI - ENT ENT exam: Present: mucous membranes moist - Neck Neck exam general surgery: Present: supple - Respiratory Respiratory exam: Present: CTAB. Absent: rales, rhonchi, wheezes, tachypnea - Cardiovascular Cardiovascular exam: Present: RRR, +S1, +S2 - GI/Abdominal GI/Abdominal exam: Present: soft. Absent: distended, firm, guarding, rigid, tenderness Additional comments: Right lower quadrant tenderness has improved, firm abscess/mass felt in the right lower quadrant nontender - Extremities Exam Extremities exam: Present: radial pulses palpable and symetrical. Absent: cyanotic, pedal edema - Neurological Exam Neurological exam: Present: alert, oriented X3, no focal deficits Internal Medicine: Result - Labs CBC & Chem 7: 09/18/16 02:35 09/17/16 05:35 Consult Discharge Plan - Plan Referrals: Winifred Tuttle MD [Primary Care Provider] -
[2016-09-19] MEDS: Acetaminophen 325 MG TABLET PO PRN (21:37)
[2016-09-20] MEDS: MetroNIDAZOLE 500 MG/100 ML 500 MG/100 ML BAG IVPB SCH ×3 (00:20→17:16)
[2016-09-20] MEDS: Piperacillin/Tazobactam 3.375 GM in D5% in Water (Mini-Bag+) 100 ML IVPB SCH ×3 (00:21→17:17)
[2016-09-20 05:46] LABS: Basophils # 0.1 K/mcL (0.0-0.2); Basophils % 0.4 %; Eosinophils # 0.1 K/mcL (0.0-0.6); Hematocrit 39.6 % (37.5-50.1); Immature Granulocytes % 0.5 % (0-4); Lymphocytes # 0.9 K/mcL (0.6-4.6); Lymphocytes % 6.7 %; Mean Corpuscular HGB Conc 33.3 g/dL (31.6-35.5); Mean Corpuscular Hemoglobin 28.9 pg (28.0-33.3); Mean Corpuscular Volume 86.8 fL (83.0-100.0); Mean Platelet Volume 10.3 fL (9.4-12.4); Monocytes % 8.1 %; Neutrophils # 10.6 K/mcL (1.6-8.9); Platelet Count 303 K/mcL (140-400); Red Blood Count 4.56 M/mcL (4.19-5.50); Red Cell Distribution Width 14.1 % (11.5-14.5); Segmented Neutrophils % 83.3 %
[2016-09-20] MEDS: *HR* Heparin 5,000 UNIT/ML VIAL SQ SCH (05:46)
[2016-09-20] MEDS: 0.9 % Sodium Chloride 1,000 ML IVC SCH (05:48)
[2016-09-20 05:49] LABS: Hemoglobin 13.2 g/dL (12.9-16.9)
[2016-09-20] MEDS: Nicotine 21 MG PATCH.TD24 TD SCH (08:18)
[2016-09-20] MEDS: Acetaminophen 325 MG TABLET PO PRN ×2 (09:18→17:15)
--- NOTE | 2016-09-20 10:02 | Internal Med Progress Note ---
<Jose L Villanueva - Last Filed: 09/20/16 15:48> Date of Encounter: 09/20/16 Time of Encounter: 08:40 - Assessment and plan (1) Perforated appendix Current Visit: Yes Status: Acute Assessment and plan: Patient improving, hemodynamically stable, no fever. Reports BM and flatus. Pain controlled. Continue Zosyn, Flagyl, Morphine, Omeprazole, and Zofran. Repeat CT - increased size of suspected abscess from perforated appendicitis Surgery following - appreciate recommendations (2) Hypertension Current Visit: Yes Status: Chronic Assessment and plan: Essential hypertension, controlled, monitor Qualifiers: Hypertension type: essential hypertension Qualified Code(s): I10 - Essential (primary) hypertension (3) Anxiety Current Visit: Yes Status: Acute Assessment and plan: Continue Celexa for anxiety. Patient reports increased anxiety in the evening and difficulty sleeping. Continue Ambien. Add PRN clonazepam as pt was previously on this at home. (4) Tobacco abuse Current Visit: Yes Status: Chronic Assessment and plan: Smoking cessation education. Continue Nicotine patch (5) DVT prophylaxis Current Visit: Yes Status: Acute Assessment and plan: Continue heparin subcutaneous - Subjective Interval history: Patient seen and examined. Doing well and pain is controlled. Complains of mild headache that improved with tylenol and poor sleep. Localized tenderness along RLQ of abdomen. Denies chest pain, dyspnea, cough, N/V/D, dysuria, or leg edema. - Constitutional Vitals: Temp Pulse Resp BP Pulse Ox 98.4 F 78 16 104/63 96 09/20/16 06:50 09/20/16 06:50 09/20/16 06:50 09/20/16 06:50 09/20/16 06:50 General appearance: Present: A&O X 3, pleasant, no acute distress, answers questions appropriately - Head Head exam: Present: atraumatic, normocephalic - Eye Eye exam: Present: sclera anicteric - ENT ENT exam: Present: mucous membranes moist - Respiratory Respiratory exam: Present: CTAB. Absent: rales, rhonchi, wheezes - Cardiovascular Cardiovascular exam: Present: RRR, +S1, +S2. Absent: diastolic murmur, systolic murmur - GI/Abdominal GI/Abdominal exam: Present: normal bowel sounds, soft, tenderness (Right lower quadrant/right side). Absent: distended, rigid - Extremities Exam Extremities exam: Present: warm, radial pulses palpable and symmetrical. Absent : calf tenderness, joint swelling, pedal edema - Neurological Exam Neurological exam: Present: alert, CN II-XII intact, oriented X3, no focal deficits Internal Medicine: Result - Labs CBC & Chem 7: 09/20/16 05:11 09/17/16 05:35 Labs: Short CBC 09/20/16 Range/Units 05:11 WBC 12.7 H (4.3-11.1) K/mcL Hgb 13.2 D (12.9-16.9) g/dL Hct 39.6 (37.5-50.1) % Plt Count 303 (140-400) K/mcL Neutrophils # 10.6 H (1.6-8.9) K/mcL Consult Discharge Plan - Plan Referrals: Winifred Tuttle MD [Primary Care Provider] - <Ej Light - Last Filed: 09/20/16 18:24> Date of Encounter: 09/20/16 - Assessment and plan (1) Perforated appendix Current Visit: Yes Status: Acute (2) Acute appendicitis Current Visit: Yes Status: Acute Qualifiers: Acute appendicitis type: with localized peritonitis Qualified Code(s): K35.3 - Acute appendicitis with localized peritonitis (3) Intra-abdominal abscess Current Visit: Yes Status: Acute (4) Hypertension Current Visit: Yes Status: Chronic Qualifiers: Hypertension type: essential hypertension Qualified Code(s): I10 - Essential (primary) hypertension (5) Anxiety Current Visit: Yes Status: Acute (6) Tobacco abuse Current Visit: Yes Status: Chronic - Constitutional Vitals: Temp Pulse Resp BP Pulse Ox 99.3 F 68 14 114/71 96 09/20/16 16:36 09/20/16 16:36 09/20/16 16:36 09/20/16 16:36 09/20/16 16:36 Internal Medicine: Result - Labs CBC & Chem 7: 09/20/16 05:11 09/17/16 05:35 Labs: Short CBC 09/20/16 Range/Units 05:11 WBC 12.7 H (4.3-11.1) K/mcL Hgb 13.2 D (12.9-16.9) g/dL Hct 39.6 (37.5-50.1) % Plt Count 303 (140-400) K/mcL Neutrophils # 10.6 H (1.6-8.9) K/mcL - Impressions Impressions Abdomen/Pelvis CT 09/20/16 09:30 IMPRESSION: Increased size of suspected abscess from perforated appendicitis. D/ / Sai Wang MD / Sai Wang MD Interpreting Provider: Sai Wang MD - Attending Attestation I examined this patient and my medical decision-making was reviewed with the Resident Physician on 09/20/16. I agree with the documented findings, disposition and treatment plan as described except to the extent set forth below. Mr. Carlos is currently admitted for perforated appendix with associated abscess. He remains high risk due to potential for worsening clinical status and infection. Mr Carlos feels OK. He tolerated diet. He is waiting to hear plan from surgery. No fever or chills now. Pain is not issue. Exam Alert. Comfortable Mucus membranes moist Heart reg No wheeze Abd soft No edema I/P 1. Perforated appendix - per surgery. Plan for IR drainage tomorrow. 2. HTN 3. Tobacco abuse. Further diagnoses and plan as above.
[2016-09-20] MEDS: clonazePAM 0.5 MG TABLET PO PRN (14:47)
--- NOTE | 2016-09-20 16:20 | General Surgery Progress Note ---
Date of Encounter: 09/20/16 Time of Encounter: 15:15 Subjective Patient reports: no new complaints Narrative: General Surgery - Patient remains stable. Afeb - hemodynamically stable. WBC has increased to 12.7 with 10.6% Neutrophils CT abd/pelvis reviewed with [facility] and discussed with Interventional Radiology. Findings include: Tiny bilateral pleural effusions; adjacent lower lobe consolidation; small hiatal hernia; focal fluid collection of fluid and gas which has increased in size marginating the tip of the appendix measuring 5.1 x 5.1 cm. This fluid collection is amenable to percutaneous drainage. Percutaneous drainage scheduled in AM per Dr Song, [facility]. This was discussed in detail with the patient. Objective Vital Signs - Last 8 Hours Temp Pulse Resp BP Pulse Ox 09/20/16 11:35 98.8 F 82 18 119/68 95 Intake and Output 09/20/16 09/20/16 09/20/16 07:59 15:59 23:59 Intake Total 200 / 200 200 / 200 Output Total 575 / 575 900 / 900 Balance -375 / -375 -700 / -700 Intake: IV Fluids 200 / 200 200 / 200 Flagyl Premix 500 MG/100 100 / 100 100 / 100 ML 500 mg In 100 ml @ 100 mls/hr IVPB Q8HR JASON Rx# :[id number] Zosyn 3.375 GM In 100 / 100 100 / 100 Dextrose 5% (Minibag+) 100 ML 100 ML @ 25 mls/hr IVPB Q8HR JAS[facility] Rx#: [id number] Output: Urine 575 / 575 900 / 900 Other: Meal NPO Weight 82.8 kg Patient Weight 09/20/16 23:59 Weight 82.8 kg - Labs 09/20/16 05:11 09/17/16 05:35 Consult Discharge Plan - Plan Referrals: Winifred Tuttle MD [Primary Care Provider] -
[2016-09-20] MEDS ORDERED: *HR* OxyCODONE/APAP 5/325 TABLET PO PRN (16:23)
[2016-09-21] MEDS: Piperacillin/Tazobactam 3.375 GM in D5% in Water (Mini-Bag+) 100 ML IVPB SCH ×2 (00:15→08:45)
[2016-09-21] MEDS: MetroNIDAZOLE 500 MG/100 ML 500 MG/100 ML BAG IVPB SCH ×2 (00:15→08:45)
[2016-09-21] MEDS: 0.9 % Sodium Chloride 1,000 ML IVC SCH (03:09)
[2016-09-21 07:51] LABS: INR 1.6; Prothrombin Time 17.1 Seconds (9.4-12.1)
[2016-09-21 08:02] LABS: BUN/Creatinine Ratio 8 (6-26); Blood Urea Nitrogen 7 mg/dL (8-26); Calcium 8.7 mg/dL (8.6-10.8); Carbon Dioxide 30 mEq/L (19-29); Chloride 99 mEq/L (98-109); Glucose 88 mg/dL (70-99); Osmolality,Calculated 279 (280-300); Potassium 3.2 mEq/L (3.5-4.5); Sodium 136 mEq/L (136-145); eGFR For African Americans > 60 (> 60); eGFR For Non-African Americans > 60 (> 60)
[2016-09-21 08:33] LABS: Hematocrit 38.2 % (37.5-50.1); Mean Corpuscular Hemoglobin 29.3 pg (28.0-33.3); Mean Corpuscular Volume 86.2 fL (83.0-100.0); Mean Platelet Volume 10.7 fL (9.4-12.4); Platelet Count 315 K/mcL (140-400); Red Blood Count 4.43 M/mcL (4.19-5.50); Red Cell Distribution Width 14.2 % (11.5-14.5)
[2016-09-21] MEDS: Nicotine 21 MG PATCH.TD24 TD SCH (08:45)
[2016-09-21 09:25] LABS: Magnesium 1.7 mg/dL (1.6-2.6)
[2016-09-21] MEDS: clonazePAM 0.5 MG TABLET PO PRN (09:57)
--- NOTE | 2016-09-21 11:15 | Discharge Summary ---
<Jose L Villanueva R - Last Filed: 09/21/16 20:20> Date of Encounter: 09/21/16 Time of Encounter: 11:13 - Discharge Diagnosis (1) Perforated appendix Priority: Primary Status: Acute (2) Intra-abdominal abscess Priority: Secondary Status: Acute (3) Hypertension Priority: Secondary Status: Chronic Qualifiers: Hypertension type: essential hypertension Qualified Code(s): I10 - Essential (primary) hypertension (4) Anxiety Priority: Secondary Status: Acute (5) Tobacco abuse Priority: Secondary Status: Chronic (6) DVT prophylaxis Priority: Secondary Status: Acute - Discharge Medications Prescriptions: Ondansetron HCl [Zofran] 4 mg PO Q8HR PRN #20 tablet PRN Reason: Nausea Ciprofloxacin [Cipro] 500 mg PO BID #14 tablet metroNIDAZOLE [Flagyl] 500 mg PO TID #21 tablet Home Medications: Citalopram Hydrobromide [Celexa] 40 mg PO QAM 09/16/16 [History] Lisinopril/Hydrochlorothiazide [Zestoretic 10-12.5 mg Tablet] 1 tab PO QAM 09/16 [History] Meloxicam [Mobic] 15 mg PO QAM 09/16/16 [History] Oxycodone HCl/Acetaminophen [Percocet 5-325 mg Tablet] 1 tab PO Q6H PRN [History] Tizanidine HCl [Zanaflex] 4 mg PO TID PRN 09/16/16 [History] Ciprofloxacin [Cipro] 500 mg PO BID #14 tablet 09/21/16 [Rx] Ondansetron HCl [Zofran] 4 mg PO Q8HR PRN #20 tablet 09/21/16 [Rx] metroNIDAZOLE [Flagyl] 500 mg PO TID #21 tablet 09/21/16 [Rx] Allergies/Adverse Reactions: Allergies Amoxicillin Allergy (Verified 09/16/16 09:51) Hives ampicillin Allergy (Verified 09/16/16 09:51) Hives bupropion [From Wellbutrin] Allergy (Verified 09/16/16 09:51) Hives Procedures/tests Complete & Pending: Procedures Performed prior 72 hours Category Date Time Status abdominal/pelvis CT with contrast [CT abd pelvis w iv Cat Scan 09/20/16 09:30 Completed and oral] [CT] Routine Date of admission: 09/16/16 10:55 Primary care physician: Winifred Tuttle Consults: 09/19/16 17:52 Consult to Business Manager [CONS] Routine Reason for SW Consult: assistance with POA paperwork Discharging clinician: Jose L Villanueva Anticipated date of discharge: 09/21/16 - Patient Status Disposition: Home, Self-Care Condition: Good Functional capacity at discharge: independent ambulation Overall status at discharge: patient is progressing back to baseline - Discharge Instructions Instructions: Appendicitis (DC), [facility] Drain Care (DC) Follow Up With: Bernabe Combs MD [Non-Partnered Physician] - Winifred Tuttle MD [Primary Care Provider] - 09/27/16 1:45 pm Satish Wiggins MD [Partnered Physician] - (Web request entered and the office is asked to call patient at home with date and time of appt. Thank you) Additional Instructions: Take antibiotics as prescribed - Ciprofloxacin 500mg - one tablet twice daily for 7 days - Flagyl 500mg - one tablet three times daily for 7 days Advance diet as tolerated Follow-up with primary care physician, Winifred Tuttle MD, and GI specialist, Bernabe Combs MD Return to be evaluated if symptoms return or worsen - Diet and Activity Activity: increase activity as tolerated Diet: advance to your usual diet Interval History: Patient seen and examined. Tolerating PO intake. Denies chest pain, dyspnea, cough, N/V/D, dysuria, or leg edema. Abdomen is tender to palpation in RLQ/ right flank. Denies other abdominal pain. Reports he slept much better last evening. Hospital course: Mr. Carlos is a 66 year old male presenting with perforated appendix with suspected periappendiceal abscess. He was placed on antibiotics and monitored for progression of abscess. After 5 days of antibiotics, the patient underwent CT-guided drainage of the abscess. He was discharged on antibiotics and will follow-up with GI as an out-patient. - Time Spent with Patient Total time spent providing and/or coordinating discharge services: - Constitutional Vitals: Temp Pulse Resp BP Pulse Ox 99.3 F 75 14 128/79 97 09/21/16 07:51 09/21/16 07:51 09/21/16 07:51 09/21/16 07:51 09/21/16 08:00 General appearance: Present: A&O X 3, pleasant, no acute distress, answers questions appropriately - Head Head exam: Present: atraumatic, normocephalic - Eye Eye exam: Present: sclera anicteric - ENT ENT exam: Present: mucous membranes moist - Respiratory Respiratory exam: Present: CTAB. Absent: rales, rhonchi, wheezes - Cardiovascular Cardiovascular exam: Present: RRR, +S1, +S2. Absent: diastolic murmur, systolic murmur - GI/Abdominal GI/Abdominal exam: Present: normal bowel sounds, soft. Absent: distended, rigid , tenderness - Extremities Exam Extremities exam: Present: warm, radial pulses palpable and symmetrical. Absent : calf tenderness, pedal edema <Ej Light - Last Filed: 09/22/16 16:27> Date of Encounter: 09/22/16 - Discharge Diagnosis (1) Perforated appendix Status: Acute (2) Acute appendicitis Priority: Secondary Status: Acute Qualifiers: Acute appendicitis type: with localized peritonitis Qualified Code(s): K35.3 - Acute appendicitis with localized peritonitis (3) Intra-abdominal abscess Status: Acute (4) Hypertension Status: Chronic Qualifiers: Hypertension type: essential hypertension Qualified Code(s): I10 - Essential (primary) hypertension (5) Anxiety Status: Acute (6) Tobacco abuse Status: Chronic Procedures/tests Complete & Pending: Procedures Performed prior 72 hours Category Date Time Status CT guided asp with tube [CT] Routine Cat Scan 09/21/16 Completed abdominal/pelvis CT with contrast [CT abd pelvis w iv Cat Scan 09/20/16 09:30 Completed and oral] [CT] Routine Date of admission: 09/16/16 10:55 Primary care physician: Winifred Tuttle Consults: 09/19/16 17:52 Consult to Business Manager [CONS] Routine Reason for SW Consult: assistance with POA paperwork Hospital course: Mr. Carlos is a 66 year old male - Time Spent with Patient Total time spent providing and/or coordinating discharge services: 39min - Constitutional Vitals: Temp Pulse Resp BP Pulse Ox 99.0 F 82 14 147/86 98 09/21/16 12:11 09/21/16 12:11 09/21/16 12:11 09/21/16 12:11 09/21/16 12:11 - Attending Attestation I examined this patient and my medical decision-making was reviewed with the Resident Physician on 09/21/16. I agree with the documented findings, disposition and treatment plan as described except to the extent set forth below. Mr. Carlos is currently admitted for perforated appendix with abscess. He had drain today. He is afebrile and ready for discharge home. Exam Alert. Comfortable Heart reg No wheeze Abd soft No edema Plan D/C home today PO abx Follow up with surgery.
[2016-09-21] MEDS ORDERED: *HR* FentaNYL (PF) 100 MCG/2 ML VIAL IVP PRN (11:33)
[2016-09-21] MEDS ORDERED: *HR* Midazolam HCl 2 MG/2 ML VIAL ONE (11:33)
[2016-09-21] MEDS ORDERED: 0.9 % Sodium Chloride 500 ML ONE (11:33)
[2016-09-21] MEDS ORDERED: *HR* FentaNYL (PF) 100 MCG/2 ML VIAL ONE (11:33)
[2016-09-21] MEDS ORDERED: *HR* Midazolam HCl 2 MG/2 ML VIAL IVP PRN (11:34)
--- NOTE | 2016-09-21 11:50 | Pre-Sedation Evaluation ---
Pre-sedation evaluation - Pre-sedation checklist Date of procedure: 09/21/16 Procedure: drain Recent Vitals: Last Vital Signs Temp 99.3 F 09/21/16 07:51 Pulse 85 09/21/16 11:44 Resp 19 09/21/16 11:44 BP 153/71 09/21/16 11:44 Pulse Ox 97 09/21/16 08:00 H&P (including ROS) documented in medical record: Yes Previous reaction to sedatives/anesthetics: No Dietary Status: NPO after Midnight Airway Assessment: Patient can open mouth completely, TMJ function normal, Micrognathia (under-bite, receding chin) absent, Neck with adequate range of motion Possible difficult airway: No ASA Classification *see protocol: CLASS II-Mild systemic disease Plan of Care: Pt appropriate candidate for procedure/moderate/conscious sedation , Risks/benefits of procedure/sedation discussed w/ patient/family, If not NPO; Risk of intake outweiged by necessity to perform procedure
--- NOTE | 2016-09-21 11:51 | IR Procedure Note ---
Date of procedure: 09/21/16 Consent Obtained: Written consent Timeout: Correct patient and procedure verified, Correct site verified, Time out performed, Skin prep completed Indications: RLQ abscess Procedure Performed: drain Site/Technique: 14F drain RLQ Results/Findings: 60 cc smelly pus Estimated blood loss (cc): 0 Complications: None; Tolerated procedure well Post Procedure Treatment Plan: dc to floor
[2016-09-21 12:11] VITALS: BP 147/86
[2016-09-21 15:23] LABS: Appearance of Body Fluid Cloudy (Clear); Source of Body Fluid intraabdominal abces; Volume of Body Fluid 55 mL
== END 2016-09-21 16:09 | disposition home or self-care (01) | DRG 373 ==
LOC: EMEROO 07:33 → 3ANU 07:33 → SUATTDRO 10:55
PROVIDERS: ADMIT Family Medicine; ATTEND Internal Medicine